=== PATIENT | female | born 1975 | race African-American/Black ===

== ENCOUNTER 2017-08-18 13:42 | Emergency (ER) | payer SELFPAY ==
[~2017-08-18] VITALS: Ht 170.2 cm; Wt 131.5 kg
[2017-08-18 14:23] LABS: Basophils # (auto) 0 uL; Basophils % (auto) 0.4 % (0.0-2.0); Eosinophils # (auto) 0.2 uL; Eosinophils % (auto) 2.8 % (0.0-7.0); Hematocrit 44.9 % (36.0-46.0); Lymphocytes # (auto) 1.9 uL; Mean Corpuscular Hemoglobin 29.3 pg (28.0-32.0); Mean Corpuscular Hgb Conc. 33.5 g/dL (32.0-36.0); Mean Corpuscular Volume 87.7 fL (80.0-100.0); Mean Platelet Volume 6.9 fL (6.9-10.8); Monocytes # (auto) 0.5 uL; Monocytes % (auto) 9.7 % (0.0-12.0); Neutrophils # (auto) 2.7 uL; Neutrophils % (auto) 51.1 % (37.0-80.0); Nucleated Red Blood Cells % 0.4 %; Platelet Count (auto) 284 10^3/uL (140-450); Red Cell Distribution Width 14.9 % (11.8-14.3); White Blood Cell 5.4 10^3/uL (4.4-10.8)
[2017-08-18 14:36] LABS: INR 3.92 (0.9-1.15); Prothrombin Time 43.3 sec (9.37-12.3)
[2017-08-18 14:44] LABS: Albumin 3.8 g/dL (3.4-5.0); BUN/Creatinine Ratio 4.6; Calcium 8.7 mg/dL (8.5-10.1); Potassium 3.8 mmol/L (3.5-5.1)
[2017-08-18 14:47] LABS: Bilirubin, Total 0.2 mg/dL (0.2-1.0)
[2017-08-18 14:54] VITALS: BP 131/56
== END 2017-08-18 15:33 | disposition home or self-care (01) ==
LOC: EDBD 13:42 → ER 13:42
DX: R00.2 Palpitations (principal); I82.409 Acute embolism and thrombosis of unspecified deep veins of unspecified lower extremity; Z79.01 Long term (current) use of anticoagulants
CPT/HCPCS: 36415; 80053; 85025; 85610